=== PATIENT | male | born 1975 | race Two or more races ===

== ENCOUNTER 2020-04-30 10:40 | Emergency (ER) | payer MEDICAID ==
[~2020-04-30] VITALS: Ht 162.6 cm; Wt 68.0 kg
--- NOTE | 2020-04-30 10:40 | NUR ---
PT BIB SELF C/O CHEST PAIN NON RADIATING X 3 DAY AND ALCOHOL WITHDRAWAL. PT IS AAOX3, NOT IN RESPIRATORY DISTRESS, HOOKED TO PRES[employer] BENEFIT SPECIALIST, KEPT RESTED AND COMFORTABLE. WILL CONTINUE TO MONITOR.
--- NOTE | 2020-04-30 10:48 | NUR ---
SEEN AND EXAMINED BY .
[2020-04-30] MEDS ORDERED: CHLORDIAZEPOXIDE HCL 25 MG CAPSULE PO ONE (11:00)
--- NOTE | 2020-04-30 11:00 | NUR ---
ER PHLEB AT BEDSIDE FOR BLOOD DRAW.
[2020-04-30] MEDS ORDERED: CHLORDIAZEPOXIDE HCL 25 MG CAPSULE ONE (11:05)
[2020-04-30 11:06] LABS: BASOPHILS # (AUTO) 0.1 /CMM (0.0-0.2); BASOPHILS % (AUTO) 1.4 % (0.0-2.0); EOSINOPHILS % (AUTO) 3.4 % (0.0-6.0); HEMATOCRIT 38 % (39-51); LYMPHOCYTES # (AUTO) 1.7 /CMM (0.8-4.8); MEAN CORPUSCULAR HGB CONC 34 g/dl (31.0-36.0); MEAN CORPUSCULAR VOLUME 99 fL (80-96); MONOCYTES # (AUTO) 0.5 /CMM (0.1-1.30); MONOCYTES % (AUTO) 7.5 % (2.0-12.0); NEUTROPHILS # (AUTO) 4.2 /CMM (1.8-8.9); NEUTROPHILS % (AUTO) 62.7 % (43.0-81.0); PLATELET COUNT (AUTO) 172 /CMM (150-450); WHITE BLOOD COUNT (AUTO) 6.7 K/uL (4.3-11.0)
[2020-04-30 11:13] LABS: CALCIUM, SERUM 8.6 mg/dL (8.5-10.1); CARBON DIOXIDE 25 mmol/L (21-32); CHLORIDE 103 mmol/L (98-107); CREATININE 0.6 mg/dL (0.6-1.3); GLUCOSE 99 mg/dL (74-106); POTASSIUM 3.7 mmol/L (3.5-5.1); SODIUM SERUM 140 mmol/L (136-145); UREA NITROGEN, BLOOD 6 mg/dL (7-18)
[2020-04-30 12:15] VITALS: BP 118/70
--- NOTE | 2020-04-30 12:15 | NUR ---
Patient discharged to home in stable condition. Written and verbal after care instructions given. Patient verbalizes understanding of instruction.IV removed. Catheter intact and site benign. Pressure and 4x4 applied to site. No bleeding noted.
== END 2020-04-30 12:21 | disposition home or self-care (01) ==
LOC: ER 10:45
DX: R07.89 Other chest pain (principal); F10.239 Alcohol dependence with withdrawal, unspecified; Y90.9 Presence of alcohol in blood, level not specified
CPT/HCPCS: 36415; 71045-TC; 80048-TC; 84484-TC; 85025-TC

== ENCOUNTER 2020-07-07 16:41 | Emergency (ER) | payer MEDICAID ==
[~2020-07-07] VITALS: Ht 165.1 cm; Wt 72.6 kg
[2020-07-07 17:39] LABS: BASOPHILS % (AUTO) 0.6 % (0.0-2.0); HEMATOCRIT 37 % (39-51); HEMOGLOBIN 12.6 g/dL (13.5-17.5); LYMPHOCYTES # (AUTO) 0.2 /CMM (0.8-4.8); LYMPHOCYTES % (AUTO) 2.1 % (20.0-44.0); MEAN CORPUSCULAR HGB CONC 34 g/dl (31.0-36.0); MEAN CORPUSCULAR VOLUME 99 fL (80-96); MONOCYTES # (AUTO) 0.4 /CMM (0.1-1.30); MONOCYTES % (AUTO) 4.3 % (2.0-12.0); NEUTROPHILS # (AUTO) 7.8 /CMM (1.8-8.9); PLATELET COUNT (AUTO) 111 /CMM (150-450); RED BLOOD CELL COUNT(AUTO) 3.77 MIL/uL (4.5-6.0); WHITE BLOOD COUNT (AUTO) 8.4 K/uL (4.3-11.0)
[2020-07-07 17:48] LABS: CALCIUM, SERUM 9.6 mg/dL (8.5-10.1); CREATININE 0.7 mg/dL (0.6-1.3); POTASSIUM 3.6 mmol/L (3.5-5.1)
[2020-07-07 17:54] LABS: BILIRUBIN,DIRECT 0.2 mg/dL (0.0-0.2); BILIRUBIN,TOTAL 0.4 mg/dL (0.2-1.0); TOTAL PROTEIN, SERUM 8.7 g/dL (6.4-8.2)
[2020-07-07] MEDS ORDERED: TDAP [DIPH/PERTUSSIS/TET] 0.5 ML VIAL IM ONE (17:54)
[2020-07-07] MEDS ORDERED: LORAZEPAM INJ 2 MG/ML VIAL ONE ×2 (17:54→19:14)
[2020-07-07] MEDS ORDERED: ONDANSETRON HCL/PF 4 MG/2 ML VIAL ONE (17:54)
[2020-07-07] MEDS: IV NS 0.9% 1,000 ML BAG IV ONE (18:00)
[2020-07-07] MEDS: LORAZEPAM INJ 2 MG/ML VIAL IVP ONE (18:00)
[2020-07-07] MEDS: TDAP [DIPH/PERTUSSIS/TET] 0.5 ML VIAL IM ONE (18:00)
[2020-07-07] MEDS: ONDANSETRON HCL/PF 4 MG/2 ML VIAL IV ONE (18:00)
[2020-07-07 18:09] LABS: ALCOHOL, BLOOD < 3 mg/dL (0-0); LIPASE 141 U/L (73-393); MAGNESIUM 1.6 mg/dL (1.8-2.4)
[2020-07-07] MEDS: LEVETIRACETAM (500MG) 500 MG in IV NS 0.9% 100 ML IV SCH (18:30)
[2020-07-07] MEDS: LORAZEPAM INJ 2 MG/ML VIAL IV ONE (19:18)
--- NOTE | 2020-07-07 19:43 | NUR ---
PATIENT IS AMBULATORY WITH A STEADY GAIT. ABLE TO PUT ON HIS OWN CLOTHES.
--- NOTE | 2020-07-07 19:47 | NUR ---
PATIENT CALLED HIS BROTHER TO PICK HIM UP.
--- NOTE | 2020-07-07 19:50 | NUR ---
IV removed. Catheter intact and site benign. Pressure and 4x4 applied to site. No bleeding noted.
--- NOTE | 2020-07-07 19:50 | NUR ---
Patient discharged to home in stable condition. Written and verbal after care instructions given. Patient verbalizes understanding of instruction.
--- NOTE | 2020-07-07 19:53 | NUR ---
PATIENT IS PICKED UP BY THE BROTHER.
[2020-07-07 19:54] VITALS: BP 127/67
== END 2020-07-07 19:55 | disposition home or self-care (01) ==
LOC: ER 16:50
DX: S02.2XXA Fracture of nasal bones, initial encounter for closed fracture (principal); G40.909 Epilepsy, unspecified, not intractable, without status epilepticus; F10.239 Alcohol dependence with withdrawal, unspecified; R74.01 Elevation of levels of liver transaminase levels; D69.6 Thrombocytopenia, unspecified; R11.2 Nausea with vomiting, unspecified; R00.0 Tachycardia, unspecified; I10 Essential (primary) hypertension; Y90.0 Blood alcohol level of less than 20 mg/100 ml; X58.XXXA Exposure to other specified factors, initial encounter; Y93.89 Activity, other specified; Y92.89 Other specified places as the place of occurrence of the external cause; Y99.8 Other external cause status
CPT/HCPCS: 36415; 70450; 70486; 80048; 80076; 80320; 83690; 83735; 85025; 90471; 90715; 96365; 96375; 96376; 99285; J1953; J2060 ×2; J2405; J7030 ×2; G0480

== ENCOUNTER 2020-10-18 15:14 | Emergency (ER) | payer MEDICAID ==
--- NOTE | 2020-10-18 15:51 | NUR ---
called for tirage not in the waiting room
--- NOTE | 2020-10-18 15:56 | NUR ---
called for triage not in the waiting room
--- NOTE | 2020-10-18 16:09 | NUR ---
called for triage not in the waiting room
== END 2020-10-18 16:11 | disposition left against medical advice (07) ==
LOC: ER 15:17
DX: Z53.21 Procedure and treatment not carried out due to patient leaving prior to being seen by health care provider (principal)

== ENCOUNTER 2020-12-14 10:58 | Emergency (ER) | payer MEDICAID ==
[~2020-12-14] VITALS: Ht 165.1 cm; Wt 63.5 kg
--- NOTE | 2020-12-14 11:10 | NUR ---
The patient c/o weakness, bib bystander, laying in the streets, pt states he fainted. The patient noted to have hand tremors, patient stattes his last drink was a week ago. The patient denies having any injury. The patient is alert and oriented x3. Denies pain. In room air and denies SOB. Respiration regular and unlabored. Will continue to monitor the patient.
[2020-12-14] MEDS ORDERED: CHLORDIAZEPOXIDE HCL 25 MG CAPSULE PO ONE (11:30)
[2020-12-14] MEDS ORDERED: ONDANSETRON 4 MG TAB.RAPDIS SL ONE (11:30)
[2020-12-14] MEDS ORDERED: ONDANSETRON 4 MG TAB.RAPDIS ONE (11:35)
[2020-12-14] MEDS ORDERED: CHLORDIAZEPOXIDE HCL 25 MG CAPSULE ONE (11:35)
--- NOTE | 2020-12-14 13:13 | NUR ---
PTS AMBULATION TESTED. PT IS UNSTEADY ON HIS GAIT AND RISK FOR FALL. TREMORS STILL PRESENT BUT PT VERBALIZES THAT IT IS BETTER THAN EARLIER. MD MADE AWARE. PT IS BACK TO BED ORDERS RECEIVED
[2020-12-14] MEDS ORDERED: LORAZEPAM 1 MG TABLET ONE (13:18)
[2020-12-14] MEDS ORDERED: LORAZEPAM 1 MG TABLET PO ONE (13:30)
--- NOTE | 2020-12-14 14:22 | NUR ---
PT IS AMBULATING BETTER AND TREMORS ARE BETTER.
--- NOTE | 2020-12-14 14:22 | NUR ---
PT IS BEING PICKED UP BY HER SISTER, TRICIA. PT IS AMBULATORY ON STEADY GAIT W/ ASSIST
[2020-12-14 14:24] VITALS: BP 137/91
== END 2020-12-14 14:24 | disposition home or self-care (01) ==
LOC: ER 11:00
DX: F10.139 Alcohol abuse with withdrawal, unspecified (principal); I10 Essential (primary) hypertension; G25.2 Other specified forms of tremor; Y90.9 Presence of alcohol in blood, level not specified
CPT/HCPCS: 99284; Q0162

== ENCOUNTER 2021-01-09 15:56 | Emergency (ER) | payer MEDICAID ==
[~2021-01-09] VITALS: Ht 162.6 cm; Wt 72.6 kg
--- NOTE | 2021-01-09 16:02 | NUR ---
called for triage not in the waiting room
[2021-01-09] MEDS ORDERED: MUPI22OI2 TP (16:56)
[2021-01-09] MEDS ORDERED: CEPH500C2 PO (16:56)
[2021-01-09] MEDS ORDERED: SULF-10 PO (16:56)
[2021-01-09] MEDS ORDERED: BACITRACIN ZINC OINT PACKET 1 EA PACKET TP ONE (17:00)
[2021-01-09 17:14] VITALS: BP 146/84
--- NOTE | 2021-01-09 17:14 | NUR ---
Patient discharged to home in stable condition. Written and verbal after care instructions given. Patient verbalizes understanding of instruction.
== END 2021-01-09 17:14 | disposition home or self-care (01) ==
LOC: ER 16:00
DX: L08.9 Local infection of the skin and subcutaneous tissue, unspecified (principal); F10.10 Alcohol abuse, uncomplicated; B35.1 Tinea unguium; I10 Essential (primary) hypertension; Y90.9 Presence of alcohol in blood, level not specified
CPT/HCPCS: 82962-TC

== ENCOUNTER 2021-01-19 15:28 | Emergency (ER) | payer MEDICAID ==
[~2021-01-19] VITALS: Ht 157.5 cm; Wt 65.8 kg
[~2021-01-19 15:28] MED LIST: CEPH500C2 PO; MUPI22OI2 TP; SULF-10 PO
[2021-01-19 15:31] VITALS: BP 134/89
[2021-01-19] MEDS ORDERED: CLIN300C12 PO (16:55)
[2021-01-19] MEDS ORDERED: CLINDAMYCIN 900 MG/6 ML VIAL IM ONE (17:00)
[2021-01-19] MEDS ORDERED: CLINDAMYCIN 900 MG/6 ML VIAL ONE (17:01)
--- NOTE | 2021-01-19 17:18 | NUR ---
Patient discharged to home in stable condition. Written and verbal after care instructions given. Patient verbalizes understanding of instruction.
== END 2021-01-19 17:22 | disposition home or self-care (01) ==
LOC: ER 15:32
DX: L08.9 Local infection of the skin and subcutaneous tissue, unspecified (principal); B35.1 Tinea unguium; I10 Essential (primary) hypertension
CPT/HCPCS: 73140; 96372; 99283; J3490

== ENCOUNTER 2023-10-14 10:20 | Emergency (ER) | payer MEDICAID, OTHER ==
[~2023-10-14] VITALS: Ht 167.6 cm; Wt 82.1 kg
[~2023-10-14 10:20] MED LIST changes: +CLIN300C12 PO; +IBUP-1957 PO
[2023-10-14 11:31] LABS: BASOPHILS # (AUTO) 0.1 K/uL (0.0-0.2); BASOPHILS % (AUTO) 3.9 % (0.0-2.0); EOSINOPHILS # (AUTO) 0.1 K/uL (0.0-0.7); EOSINOPHILS % (AUTO) 3.6 % (0.0-6.0); HEMATOCRIT 34 % (39-51); HEMOGLOBIN 10.8 g/dL (13.5-17.5); LYMPHOCYTES # (AUTO) 1.2 K/uL (0.8-4.8); LYMPHOCYTES % (AUTO) 41.7 % (20.0-44.0); MEAN CORPUSCULAR HEMOGLOBIN 28 PG (26.0-33.0); MEAN CORPUSCULAR HGB CONC 32 g/dl (31.0-36.0); MEAN CORPUSCULAR VOLUME 86 fL (80-96); MONOCYTES # (AUTO) 0.3 K/uL (0.1-1.30); MONOCYTES % (AUTO) 9.8 % (2.0-12.0); NEUTROPHILS # (AUTO) 1.1 K/uL (1.8-8.9); PLATELET COUNT (AUTO) 105 K/uL (150-450); RED BLOOD CELL COUNT(AUTO) 3.92 MIL/uL (4.5-6.0); RED CELL DISTRIBUTION WIDTH 16.5 % (11.5-15.0); WHITE BLOOD COUNT (AUTO) 2.8 K/uL (4.3-11.0)
[2023-10-14 11:50] LABS: APPEARANCE,URINE CLEAR (CLEAR); BILIRUBIN,URINE NEGATIVE (NEGATIVE); BLOOD, URINE NEGATIVE Ery/uL (NEGATIVE); COLOR,URINE YELLOW (YELLOW); KETONES,URINE NEGATIVE (NEGATIVE); LEUKOCYTE ESTERASE ,URINE NEGATIVE (NEGATIVE); NITRITE, URINE NEGATIVE (NEGATIVE); PH,URINE 5.5 (5.0-8.0); PROTEIN,URINE NEGATIVE (NEGATIVE); UGLUCOSE 1+ mg/dL (NEGATIVE); UROBILINOGEN,URINE 0.2 EU/dL (0.2)
[2023-10-14 11:53] LABS: ADD URINE CULTURE NO; BACTERIA,URINE None seen /HPF (None Seen); RBC,URINE 0-2 /HPF (0-2); SQUAMOUS EPITHELIAL CELL,UR Rare /HPF (None Seen); WBC,URINE 0-2 /HPF (0-3)
[2023-10-14 12:28] LABS: AMPHETAMINE, URINE NEGATIVE (NEGATIVE); BARBITURATE, URINE NEGATIVE (NEGATIVE); BENZODIAZEPINE, URINE NEGATIVE (NEGATIVE); CANNABINOID, URINE NEGATIVE (NEGATIVE); COCCAINE, URINE NEGATIVE (NEGATIVE); OPIATE, URINE NEGATIVE (NEGATIVE); PHENCYCLIDINE SCREEN,URINE NEGATIVE (NEGATIVE)
[2023-10-14 12:33] LABS: ALANINE AMINOTRANSFERASE 84 U/L (12-78); ALKALINE PHOSPHATASE 71 U/L (46-116); ASPARTATE AMINOTRANSFERASE 120 U/L (15-37); BILIRUBIN,DIRECT 0.1 mg/dL (0.0-0.2); BILIRUBIN,TOTAL 0.2 mg/dL (0.2-1.0)
[2023-10-14 12:34] LABS: SODIUM SERUM 134 mmol/L (136-145)
[2023-10-14 12:35] LABS: ACETAMINOPHEN <10 ug/ml (10-30); ALCOHOL, BLOOD < 3 mg/dL (0-10); CALCIUM, SERUM 8.8 mg/dL (8.5-10.1); CARBON DIOXIDE 22 mmol/L (21-32); CHLORIDE 100 mmol/L (98-107); CREATININE 0.6 mg/dL (0.6-1.3); GLUCOSE 199 mg/dL (74-106); POTASSIUM 3.8 mmol/L (3.5-5.1); SALICYLATE 1.4 mg/dL (2.8-20.0); UREA NITROGEN, BLOOD 4 mg/dL (7-18)
[2023-10-14] MEDS ORDERED: ACETAMINOPHEN ES 500 MG TABLET ONE (12:51)
[2023-10-14] MEDS: ACETAMINOPHEN ES 500 MG TABLET PO ONE (12:52)
[2023-10-14 12:53] VITALS: BP 135/66; TEMP 98.7; O2SAT 100
== END 2023-10-14 12:53 | disposition home or self-care (01) ==
LOC: ER 10:30
DX: G89.29 Other chronic pain (principal); I10 Essential (primary) hypertension
CPT/HCPCS: 36415; 80048-TC; 80076-TC; 81001; 85025-TC; G0480

== ENCOUNTER 2023-11-03 15:27 | Emergency (ER) | payer OTHER ==
[~2023-11-03] VITALS: Ht 165.1 cm; Wt 72.6 kg
[2023-11-03 15:46] VITALS: TEMP 98.4
[2023-11-03 23:31] VITALS: BP 114/68; O2SAT 98
== END 2023-11-03 21:32 | disposition home or self-care (01) ==
LOC: ER 15:37
DX: S00.93XA Contusion of unspecified part of head, initial encounter (principal); F10.10 Alcohol abuse, uncomplicated; I10 Essential (primary) hypertension; Z60.2 Problems related to living alone; Z79.899 Other long term (current) drug therapy; W18.30XA Fall on same level, unspecified, initial encounter; Y93.89 Activity, other specified; Y92.89 Other specified places as the place of occurrence of the external cause; Y99.8 Other external cause status; Y90.9 Presence of alcohol in blood, level not specified
CPT/HCPCS: 70450-TC; 72125-TC

== ENCOUNTER 2023-12-23 13:42 | Emergency (ER) | payer OTHER ==
[~2023-12-23] VITALS: Ht 175.3 cm; Wt 68.0 kg
[2023-12-23 16:45] VITALS: TEMP 98.5
[2023-12-23] MEDS ORDERED: KETOROLAC TROMETHAMINE INJ 30 MG/ML VIAL ONE (17:13)
[2023-12-23] MEDS: KETOROLAC TROMETHAMINE INJ 60 MG/2 ML VIAL IM ONE (17:51)
[2023-12-23 21:01] VITALS: BP 128/78; O2SAT 98
== END 2023-12-23 21:01 | disposition home or self-care (01) ==
LOC: ER 13:44
DX: G89.29 Other chronic pain (principal); F10.10 Alcohol abuse, uncomplicated; I10 Essential (primary) hypertension; Z79.899 Other long term (current) drug therapy; Z60.2 Problems related to living alone; Y90.9 Presence of alcohol in blood, level not specified
CPT/HCPCS: 99283; 96372; 73564 ×2; J1885

== ENCOUNTER 2024-01-16 20:11 | Emergency (ER) | payer OTHER ==
[~2024-01-16] VITALS: Ht 170.2 cm; Wt 81.6 kg
[2024-01-17 05:42] VITALS: BP 133/79; TEMP 98.4; O2SAT 96
== END 2024-01-17 05:42 | disposition home or self-care (01) ==
LOC: ER 20:16
DX: F10.129 Alcohol abuse with intoxication, unspecified (principal); I10 Essential (primary) hypertension; M79.605 Pain in left leg; M79.604 Pain in right leg; Z60.2 Problems related to living alone; Y90.9 Presence of alcohol in blood, level not specified

== ENCOUNTER 2024-04-14 09:00 | Emergency (ER) | payer OTHER ==
[~2024-04-14] VITALS: Ht 172.7 cm; Wt 74.8 kg
[2024-04-14] MEDS ORDERED: FOLIC ACID 1 MG TABLET ONE (09:18)
[2024-04-14] MEDS ORDERED: THIAMINE HCL 100 MG TABLET ONE (09:18)
[2024-04-14] MEDS: FOLIC ACID 1 MG TABLET PO ONE (09:20)
[2024-04-14] MEDS: IV NS 0.9% 1,000 ML BAG IV ONE (09:20)
[2024-04-14] MEDS: THIAMINE HCL 100 MG TABLET PO ONE (09:20)
[2024-04-14 09:26] LABS: BASOPHILS # (AUTO) 0.1 K/uL (0.0-0.2); BASOPHILS % (AUTO) 1.5 % (0.0-2.0); EOSINOPHILS % (AUTO) 0.1 % (0.0-6.0); HEMATOCRIT 36 % (39-51); HEMOGLOBIN 11.7 g/dL (13.5-17.5); LYMPHOCYTES # (AUTO) 0.3 K/uL (0.8-4.8); LYMPHOCYTES % (AUTO) 6.3 % (20.0-44.0); MEAN CORPUSCULAR HEMOGLOBIN 30 PG (26.0-33.0); MEAN CORPUSCULAR HGB CONC 33 g/dl (31.0-36.0); MEAN CORPUSCULAR VOLUME 91 fL (80-96); MONOCYTES # (AUTO) 0.6 K/uL (0.1-1.30); MONOCYTES % (AUTO) 11.5 % (2.0-12.0); NEUTROPHILS # (AUTO) 3.9 K/uL (1.8-8.9); NEUTROPHILS % (AUTO) 80.6 % (43.0-81.0); PLATELET COUNT (AUTO) 103 K/uL (150-450); RED BLOOD CELL COUNT(AUTO) 3.92 MIL/uL (4.5-6.0); WHITE BLOOD COUNT (AUTO) 4.9 K/uL (4.3-11.0)
[2024-04-14 09:33] LABS: CALCIUM, SERUM 9.6 mg/dL (8.5-10.1); CREATININE 0.9 mg/dL (0.6-1.3); POTASSIUM 3.3 mmol/L (3.5-5.1)
[2024-04-14 13:30] VITALS: BP 122/80; TEMP 98.9; O2SAT 100
== END 2024-04-14 13:30 | disposition home or self-care (01) ==
LOC: ER 09:04
DX: S00.03XA Contusion of scalp, initial encounter (principal); F10.129 Alcohol abuse with intoxication, unspecified; I10 Essential (primary) hypertension; Z59.00 Homelessness unspecified; W01.198A Fall on same level from slipping, tripping and stumbling with subsequent striking against other object, initial encounter; Y93.89 Activity, other specified; Y92.89 Other specified places as the place of occurrence of the external cause; Y99.8 Other external cause status; Y90.9 Presence of alcohol in blood, level not specified
CPT/HCPCS: 99284; 96360; 70450; 85025; 80048; 36415; 98960; J7030

== ENCOUNTER 2024-04-16 13:43 | Inpatient (IN) | payer OTHER ==
[~2024-04-16] VITALS: Ht 167.6 cm; Wt 55.8 kg
[2024-04-16 14:31] LABS: BASOPHILS % (AUTO) 0.4 % (0.0-2.0); HEMATOCRIT 38 % (39-51); HEMOGLOBIN 11.4 g/dL (13.5-17.5); LYMPHOCYTES # (AUTO) 0.3 K/uL (0.8-4.8); LYMPHOCYTES % (AUTO) 3.2 % (20.0-44.0); MEAN CORPUSCULAR HEMOGLOBIN 30 PG (26.0-33.0); MEAN CORPUSCULAR HGB CONC 30 g/dl (31.0-36.0); MEAN CORPUSCULAR VOLUME 99 fL (80-96); MONOCYTES # (AUTO) 0.9 K/uL (0.1-1.30); MONOCYTES % (AUTO) 9.6 % (2.0-12.0); NEUTROPHILS # (AUTO) 8.4 K/uL (1.8-8.9); NEUTROPHILS % (AUTO) 86.8 % (43.0-81.0); PLATELET COUNT (AUTO) 107 K/uL (150-450); RED BLOOD CELL COUNT(AUTO) 3.82 MIL/uL (4.5-6.0); RED CELL DISTRIBUTION WIDTH 16.5 % (11.5-15.0); WHITE BLOOD COUNT (AUTO) 9.6 K/uL (4.3-11.0)
[2024-04-16 14:59] LABS: CALCIUM, SERUM 8.9 mg/dL (8.5-10.1); CHLORIDE 97 mmol/L (98-107); CREATININE 0.8 mg/dL (0.6-1.3); GLUCOSE 72 mg/dL (74-106); POTASSIUM 3.2 mmol/L (3.5-5.1); SODIUM SERUM 137 mmol/L (136-145); UREA NITROGEN, BLOOD 18 mg/dL (7-18)
[2024-04-16 15:02] LABS: CARBON DIOXIDE 5 mmol/L (21-32)
[2024-04-16 15:05] LABS: ALANINE AMINOTRANSFERASE 102 U/L (12-78); ALBUMIN 4.4 g/dL (3.4-5.0); ALCOHOL, BLOOD < 3 mg/dL (0-10); ALKALINE PHOSPHATASE 90 U/L (46-116); ASPARTATE AMINOTRANSFERASE 175 U/L (15-37); BILIRUBIN,DIRECT 0.7 mg/dL (0.0-0.2); BILIRUBIN,TOTAL 1.2 mg/dL (0.2-1.0); SALICYLATE 6.1 mg/dL (2.8-20.0); TOTAL PROTEIN, SERUM 8.3 g/dL (6.4-8.2)
[2024-04-16 15:09] LABS: ACETAMINOPHEN <10 ug/ml (10-30)
[2024-04-16] MEDS: IV NS 0.9% 1,000 ML BAG IV ONE (15:40)
[2024-04-16] MEDS: CEFTRIAXONE 1GM BAG (ER ONLY) 50 ML IV ONE (15:45)
[2024-04-16 15:52] LABS: ABG BASE EXCESS -27.2 mmol/L (-2.0-3.0); ABG OXYGEN SATURATION 83.8 % (94.0-98.0); ABG PCO2 15.3 mmHg (35.0-48.0); ABG PO2 62.7 mmHg (83.0-108.0); ABG TOTAL HEMOGLOBIN 12.3 G/dL (13.5-17.5); COHb 0.3 % (0.5-1.5); MetHb 0.4 % (0.0-1.5); O2Hb 83.2 % (94.0-97.0); SITE, ABG RIGHT RADIAL
[2024-04-16] MEDS: DEXTROSE 50%-WATER 50 ML DISP.SYRIN IV ONE (16:12)
[2024-04-16] MEDS: SODIUM BICARBONATE SYR 50 MEQ/50 ML DISP.SYRIN IV ONE (16:18)
[2024-04-16 16:25] LABS: APPEARANCE,URINE SLIGHTLY CLOUDY (CLEAR); BILIRUBIN,URINE 1+ (NEGATIVE); BLOOD, URINE 3+ Ery/uL (NEGATIVE); COLOR,URINE YELLOW (YELLOW); KETONES,URINE 3+ mg/dL (NEGATIVE); LEUKOCYTE ESTERASE ,URINE TRACE (NEGATIVE); NITRITE, URINE NEGATIVE (NEGATIVE); PROTEIN,URINE 2+ mg/dl (NEGATIVE); UGLUCOSE NEGATIVE (NEGATIVE)
[2024-04-16 16:50] LABS: ADD URINE CULTURE NO; BACTERIA,URINE RARE /HPF (None Seen); RBC,URINE 51-80 /HPF (0-2)
[2024-04-16 16:51] LABS: HYALINE CASTS, URINE Few /LPF (None Seen); MUCUS,URINE Few /LPF (None Seen)
[2024-04-16 16:57] LABS: ANISOCYTOSIS 1+; BAND % (MANUAL) 2 % (0.0-5.0); LYMPHOCYTES % (MANUAL) 6 % (16-48); MONOCYTES % (MANUAL) 3 % (0-11.0); NEUTROPHILS % (MANUAL) 89 (42-76); PLATELET ESTIMATE DECREASED
[2024-04-16 17:04] LABS: AMPHETAMINE, URINE NEGATIVE (NEGATIVE); BARBITURATE, URINE NEGATIVE (NEGATIVE); BENZODIAZEPINE, URINE NEGATIVE (NEGATIVE); CANNABINOID, URINE NEGATIVE (NEGATIVE); COCCAINE, URINE NEGATIVE (NEGATIVE); OPIATE, URINE NEGATIVE (NEGATIVE); PHENCYCLIDINE SCREEN,URINE NEGATIVE (NEGATIVE)
[2024-04-16 17:15] LABS: THYROID STIMULATING HORMONE 1.37 uIU/mL (0.358-3.74)
[2024-04-16] MEDS ORDERED: ONDANSETRON HCL/PF 4 MG/2 ML VIAL IVP PRN (17:30)
[2024-04-16] MEDS ORDERED: MAGNESIUM HYDROXIDE 30 ML UDC PO PRN (17:30)
[2024-04-16] MEDS ORDERED: MAG HYDROX/AL HYDROX/SIMETH 30 ML UDC PO PRN (17:30)
[2024-04-16] MEDS ORDERED: Z GUARD REMEDY 4 OZ OINT TP PRN (17:30)
[2024-04-16 21:00] VITALS: BP 112/78; TEMP 97.8; O2SAT 100
[2024-04-16 21:30] VITALS: BP 120/73; O2SAT 100
[2024-04-16] MEDS: IV NS 0.9% 1,000 ML IV SCH (21:32)
[2024-04-16 22:00] VITALS: BP 118/69; O2SAT 100
[2024-04-16] MEDS ORDERED: CEFEPIME 1 GM VIAL ONE (22:05)
[2024-04-16] MEDS: CEFEPIME 2 GM in IV D5W 100 ML IV SCH (22:19)
[2024-04-16 22:30] VITALS: BP 113/74; O2SAT 100
[2024-04-16 23:00] VITALS: BP 122/68; O2SAT 100
[2024-04-16 23:30] VITALS: BP 119/74; O2SAT 100
[2024-04-17] VITALS (45 sets, daily range): BP systolic 102–144; BP diastolic 37–126; TEMP 97.5–98.6; O2SAT 98–100
[2024-04-17 04:51] LABS: BASOPHILS % (AUTO) 0.1 % (0.0-2.0); EOSINOPHILS % (AUTO) 0.2 % (0.0-6.0); HEMATOCRIT 34 % (39-51); HEMOGLOBIN 10.5 g/dL (13.5-17.5); LYMPHOCYTES # (AUTO) 0.4 K/uL (0.8-4.8); LYMPHOCYTES % (AUTO) 3.9 % (20.0-44.0); MEAN CORPUSCULAR HEMOGLOBIN 30 PG (26.0-33.0); MEAN CORPUSCULAR HGB CONC 31 g/dl (31.0-36.0); MEAN CORPUSCULAR VOLUME 98 fL (80-96); MONOCYTES # (AUTO) 1.6 K/uL (0.1-1.30); MONOCYTES % (AUTO) 14.3 % (2.0-12.0); NEUTROPHILS # (AUTO) 8.9 K/uL (1.8-8.9); NEUTROPHILS % (AUTO) 81.5 % (43.0-81.0); PLATELET COUNT (AUTO) 109 K/uL (150-450); RED BLOOD CELL COUNT(AUTO) 3.48 MIL/uL (4.5-6.0); RED CELL DISTRIBUTION WIDTH 16.4 % (11.5-15.0); WHITE BLOOD COUNT (AUTO) 10.9 K/uL (4.3-11.0)
[2024-04-17 05:00] LABS: CALCIUM, SERUM 7.8 mg/dL (8.5-10.1); MAGNESIUM 2.1 mg/dL (1.8-2.4); POTASSIUM 2.9 mmol/L (3.5-5.1)
[2024-04-17] MEDS: POTASSIUM CL. PREMIX PERIPHER. 50 ML IV SCH ×4 (05:40→22:41)
[2024-04-17] MEDS: Sodium Bicarbonate 50 MEQ in IV D5/0.45 NACL 1,000 ML IV SCH (07:54)
[2024-04-17] MEDS ORDERED: Sodium Bicarbonate 150 MEQ in IV D5/0.45 NACL 1,000 ML IV PRN (08:30)
[2024-04-17 08:31] LABS: ABG BASE EXCESS -24.2 mmol/L (-2.0-3.0); ABG OXYGEN SATURATION 98.3 % (94.0-98.0); ABG PCO2 12.2 mmHg (35.0-48.0); ABG PH 7.084 (7.350-7.450); ABG PO2 141.1 mmHg (83.0-108.0); ABG TOTAL HEMOGLOBIN 11.5 G/dL (13.5-17.5); COHb 0.1 % (0.5-1.5); MetHb 0.2 % (0.0-1.5); SITE, ABG LEFT RADIAL
[2024-04-17] MEDS: SODIUM BICARBONATE SYR 50 MEQ/50 ML DISP.SYRIN IV ONE (09:33)
[2024-04-17] MEDS: Sodium Bicarbonate 150 MEQ in IV D5/0.45 NACL 1,000 ML IV ONE (11:39)
[2024-04-17 13:17] LABS: CALCIUM, SERUM 8.4 mg/dL (8.5-10.1); CREATININE 0.9 mg/dL (0.6-1.3); POTASSIUM 3.2 mmol/L (3.5-5.1)
[2024-04-17 14:53] LABS: ABG BASE EXCESS -15.6 mmol/L (-2.0-3.0); ABG OXYGEN SATURATION 98.3 % (94.0-98.0); ABG PCO2 14.5 mmHg (35.0-48.0); ABG PH 7.343 (7.350-7.450); ABG PO2 118.6 mmHg (83.0-108.0); ABG TOTAL HEMOGLOBIN 11.1 G/dL (13.5-17.5); COHb 0.4 % (0.5-1.5); MetHb 0.2 % (0.0-1.5); O2Hb 97.7 % (94.0-97.0); SITE, ABG RIGHT RADIAL
[2024-04-17] MEDS ORDERED: POTASSIUM CL. PREMIX PERIPHER. 50 ML IV SCH (15:00)
[2024-04-17] MEDS: SODIUM BICARBONATE IV SCH (15:57)
[2024-04-17] MEDS: D5W IV SCH (15:57)
[2024-04-17 16:46] LABS: CALCIUM, SERUM 8.4 mg/dL (8.5-10.1)
[2024-04-17 17:01] LABS: POTASSIUM 2.7 mmol/L (3.5-5.1)
[2024-04-17] MEDS: IV D5W 1,000 ML IV PRN ×2 (18:43→21:39)
[2024-04-17] MEDS ORDERED: Sodium Bicarbonate 150 MEQ in IV D5/0.45 NACL 1,000 ML IV SCH (21:00)
[2024-04-17 21:37] LABS: CALCIUM, SERUM 7.9 mg/dL (8.5-10.1); CREATININE 1.1 mg/dL (0.6-1.3)
[2024-04-17 21:40] LABS: POTASSIUM 2.6 mmol/L (3.5-5.1)
[2024-04-18] VITALS (24 sets, daily range): BP systolic 100–135; BP diastolic 65–79; TEMP 97.8–98.1; O2SAT 94–100
[2024-04-18 04:55] LABS: BASOPHILS % (AUTO) 0.3 % (0.0-2.0); EOSINOPHILS % (AUTO) 0.1 % (0.0-6.0); HEMATOCRIT 26 % (39-51); HEMOGLOBIN 8.8 g/dL (13.5-17.5); LYMPHOCYTES # (AUTO) 0.3 K/uL (0.8-4.8); LYMPHOCYTES % (AUTO) 4.8 % (20.0-44.0); MEAN CORPUSCULAR HEMOGLOBIN 31 PG (26.0-33.0); MEAN CORPUSCULAR HGB CONC 34 g/dl (31.0-36.0); MEAN CORPUSCULAR VOLUME 92 fL (80-96); MONOCYTES % (AUTO) 17.2 % (2.0-12.0); NEUTROPHILS # (AUTO) 4.6 K/uL (1.8-8.9); NEUTROPHILS % (AUTO) 77.6 % (43.0-81.0); PLATELET COUNT (AUTO) 82 K/uL (150-450); RED BLOOD CELL COUNT(AUTO) 2.84 MIL/uL (4.5-6.0); RED CELL DISTRIBUTION WIDTH 16.1 % (11.5-15.0)
[2024-04-18 05:11] LABS: CALCIUM, SERUM 7.6 mg/dL (8.5-10.1); CREATININE 0.8 mg/dL (0.6-1.3); MAGNESIUM 1.6 mg/dL (1.8-2.4)
[2024-04-18 05:15] LABS: BAND % (MANUAL) 2 % (0.0-5.0); BASOPHILS % (MANUAL) 0 % (0.0-2.0); EOSINOPHILS % (MANUAL) 0 % (0-4); LYMPHOCYTES % (MANUAL) 6 % (16-48); MONOCYTES % (MANUAL) 16 % (0-11.0); NEUTROPHILS % (MANUAL) 76 (42-76)
[2024-04-18 05:16] LABS: PLATELET ESTIMATE DECREASED; STOMATOCYTES FEW
[2024-04-18 05:21] LABS: PHOSPHORUS 0.8 mg/dL (2.5-4.9); POTASSIUM 2.5 mmol/L (3.5-5.1)
[2024-04-18] MEDS: POTASSIUM CL. PREMIX PERIPHER. 50 ML IV SCH (07:12)
[2024-04-18] MEDS: Magnesium 1GM/D5W 100ML PREMIX 100 ML IV SCH (07:20)
[2024-04-18] MEDS: POTASSIUM CHLORIDE 20 MEQ TAB.PRT.SR PO ONE ×2 (09:19→20:04)
[2024-04-18] MEDS ORDERED: MAGNESIUM OXIDE 400 MG TABLET PO ONE (10:00)
[2024-04-18] MEDS: POTASSIUM PHOSPHATE MM 7.5 MMOL in IV NS 0.9% 100 ML IV SCH (10:44)
[2024-04-18] MEDS: NEUTRA PHOS 1 POWD.PACKET PO ONE (10:47)
[2024-04-18] MEDS: IV NS 0.9% 1,000 ML IV PRN (18:12)
[2024-04-18] MEDS ORDERED: DEXTROSE 50%-WATER 50 ML DISP.SYRIN IV PRN (18:30)
[2024-04-18 20:18] LABS: CALCIUM, SERUM 8.3 mg/dL (8.5-10.1); CREATININE 0.7 mg/dL (0.6-1.3)
[2024-04-18 20:22] LABS: POTASSIUM 2.5 mmol/L (3.5-5.1)
[2024-04-18] MEDS: BLOOD SUGAR DIAGNOSTIC 1 EACH STRIP VI SCH (22:18)
[2024-04-18] MEDS: *INSULIN REGULAR(HUMULIN R)HUM 100 UNIT/ML VIAL SQ PRN (22:20)
[2024-04-18 23:25] LABS: CALCIUM, SERUM 8.1 mg/dL (8.5-10.1); CREATININE 0.6 mg/dL (0.6-1.3); POTASSIUM 3.2 mmol/L (3.5-5.1)
[2024-04-19] VITALS (17 sets, daily range): BP systolic 105–140; BP diastolic 65–88; TEMP 98–98.5; O2SAT 93–100
[2024-04-19 05:02] LABS: CALCIUM, SERUM 8.3 mg/dL (8.5-10.1); CREATININE 0.6 mg/dL (0.6-1.3); POTASSIUM 2.8 mmol/L (3.5-5.1)
[2024-04-19] MEDS: POTASSIUM CHLORIDE 20 MEQ TAB.PRT.SR PO ONE ×2 (06:46→07:54)
[2024-04-19] MEDS: INSULIN REGULAR, HUMAN 100 UNIT/ML 3 ML VIAL SQ PRN (07:47)
[2024-04-19 09:33] LABS: BASOPHILS % (AUTO) 0.8 % (0.0-2.0); EOSINOPHILS % (AUTO) 0.4 % (0.0-6.0); HEMATOCRIT 30 % (39-51); HEMOGLOBIN 9.9 g/dL (13.5-17.5); LYMPHOCYTES # (AUTO) 0.6 K/uL (0.8-4.8); LYMPHOCYTES % (AUTO) 13.2 % (20.0-44.0); MEAN CORPUSCULAR HEMOGLOBIN 30 PG (26.0-33.0); MEAN CORPUSCULAR HGB CONC 33 g/dl (31.0-36.0); MEAN CORPUSCULAR VOLUME 92 fL (80-96); MONOCYTES # (AUTO) 0.9 K/uL (0.1-1.30); MONOCYTES % (AUTO) 19.1 % (2.0-12.0); NEUTROPHILS # (AUTO) 3.2 K/uL (1.8-8.9); NEUTROPHILS % (AUTO) 66.5 % (43.0-81.0); PLATELET COUNT (AUTO) 69 K/uL (150-450); RED BLOOD CELL COUNT(AUTO) 3.27 MIL/uL (4.5-6.0); RED CELL DISTRIBUTION WIDTH 15.7 % (11.5-15.0); WHITE BLOOD COUNT (AUTO) 4.8 K/uL (4.3-11.0)
[2024-04-19 10:50] LABS: ANISOCYTOSIS 1+; PLATELET ESTIMATE DECREASED
[2024-04-19 13:13] LABS: CALCIUM, SERUM 8.8 mg/dL (8.5-10.1); CREATININE 0.5 mg/dL (0.6-1.3); POTASSIUM 3.4 mmol/L (3.5-5.1)
[2024-04-19] MEDS: ACETAMINOPHEN 325 MG TABLET PO PRN (22:33)
[2024-04-20] VITALS: BP 136/88; TEMP 98.9; O2SAT 100
[2024-04-20 08:00] VITALS: BP 128/87; TEMP 98.4; O2SAT 98
[2024-04-20 16:00] VITALS: BP 123/76; TEMP 98.8; O2SAT 99
[2024-04-21] VITALS: BP 123/76; TEMP 98.8; O2SAT 99
[2024-04-21 04:01] VITALS: BP 130/65; TEMP 98; O2SAT 100
[2024-04-21 08:00] VITALS: BP 136/75; TEMP 98; O2SAT 100
[2024-04-21] MEDS: OLANZAPINE 10 MG VIAL IM PRN (08:52)
[2024-04-21] MEDS: THIAMINE HCL 100 MG TABLET PO SCH (10:55)
[2024-04-21] MEDS ORDERED: CHLORDIAZEPOXIDE HCL 25 MG CAPSULE PO PRN (11:00)
[2024-04-21 16:00] VITALS: BP 102/79; TEMP 98.8; O2SAT 99
[2024-04-21] MEDS: OLANZAPINE ZYDIS 5 MG TAB.RAPDIS PO SCH (17:41)
[2024-04-21 20:00] VITALS: BP 125/89; TEMP 99.1; O2SAT 100
[2024-04-22 04:00] VITALS: BP 124/90; TEMP 98.8; O2SAT 100
[2024-04-22 07:03] LABS: BASOPHILS # (AUTO) 0.1 K/uL (0.0-0.2); BASOPHILS % (AUTO) 0.6 % (0.0-2.0); EOSINOPHILS # (AUTO) 0.1 K/uL (0.0-0.7); HEMATOCRIT 33 % (39-51); HEMOGLOBIN 10.6 g/dL (13.5-17.5); LYMPHOCYTES # (AUTO) 1.8 K/uL (0.8-4.8); MEAN CORPUSCULAR HEMOGLOBIN 30 PG (26.0-33.0); MEAN CORPUSCULAR HGB CONC 33 g/dl (31.0-36.0); MEAN CORPUSCULAR VOLUME 93 fL (80-96); MONOCYTES # (AUTO) 2.5 K/uL (0.1-1.30); MONOCYTES % (AUTO) 25.4 % (2.0-12.0); NEUTROPHILS # (AUTO) 5.4 K/uL (1.8-8.9); PLATELET COUNT (AUTO) 251 K/uL (150-450); RED BLOOD CELL COUNT(AUTO) 3.51 MIL/uL (4.5-6.0); WHITE BLOOD COUNT (AUTO) 9.8 K/uL (4.3-11.0)
[2024-04-22 07:33] LABS: CALCIUM, SERUM 9.8 mg/dL (8.5-10.1); CREATININE 0.5 mg/dL (0.6-1.3); MAGNESIUM 1.8 mg/dL (1.8-2.4); PHOSPHORUS 1.8 mg/dL (2.5-4.9); POTASSIUM 3.2 mmol/L (3.5-5.1)
[2024-04-22] MEDS: MULTIVIT W/MINERALS 1 TAB TABLET PO SCH (08:21)
[2024-04-22 08:55] LABS: BAND % (MANUAL) 1 % (0.0-5.0); EOSINOPHILS % (MANUAL) 1 % (0-4); LYMPHOCYTES % (MANUAL) 14 % (16-48); METAMYELOCYTES % 2 % (0-0); MONOCYTES % (MANUAL) 25 % (0-11.0); NEUTROPHILS % (MANUAL) 55 (42-76)
[2024-04-22 08:56] LABS: ANISOCYTOSIS 1+; MYELOCYTES % 1 % (0-0); PLATELET ESTIMATE ADEQUATE; PROMYELOCYTES % 1 % (0-0)
[2024-04-22] MEDS: POTASSIUM CHLORIDE 20 MEQ TAB.PRT.SR PO SCH (11:26)
[2024-04-22] MEDS: K PHOS NEUTRAL 250 MG TABLET PO ONE (15:59)
[2024-04-22 16:00] VITALS: BP 104/72; TEMP 98.6; O2SAT 100
[2024-04-22] MEDS: IV D5/0.45 NACL 1,000 ML IV PRN (16:54)
[2024-04-22] MEDS ORDERED: Sodium Phosphate 15 MMOL in IV NS 0.9% 245 ML IV SCH (18:30)
[2024-04-22] MEDS: POTASSIUM CL. PREMIX PERIPHER. 50 ML IV SCH (18:46)
[2024-04-22 20:00] VITALS: BP 127/84; TEMP 98.6; O2SAT 100
[2024-04-22] MEDS: Sodium Phosphate 15 MMOL in IV NS 0.9% 245 ML IV SCH (21:00)
[2024-04-23 04:00] VITALS: BP 130/85; TEMP 98.4; O2SAT 100
[2024-04-23 08:00] VITALS: BP 106/73; TEMP 98.1; O2SAT 100
[2024-04-23 12:00] VITALS: BP 106/73; TEMP 98.1; O2SAT 100
[2024-04-23 18:00] VITALS: BP 123/85; TEMP 99; O2SAT 99
[2024-04-23] MEDS ORDERED: CEFEPIME 1 GM in IV D5W 50 ML IV SCH (18:30)
[2024-04-23] MEDS: CEFEPIME 2 GM in IV D5W 100 ML IV SCH (19:48)
[2024-04-23 20:00] VITALS: BP 107/69; TEMP 98.5; O2SAT 97
[2024-04-24 04:00] VITALS: BP 120/70; TEMP 98.5; O2SAT 98
[2024-04-24] MEDS ORDERED: METF-442 PO (09:47)
[2024-04-24 12:00] VITALS: BP 117/80; TEMP 98.2; O2SAT 100
[2024-04-24 20:00] VITALS: BP 107/67; TEMP 98.3; O2SAT 100
[2024-04-25 04:00] VITALS: BP 108/69; TEMP 98.1; O2SAT 100
[2024-04-25 08:23] LABS: BASOPHILS # (AUTO) 0.1 K/uL (0.0-0.2); BASOPHILS % (AUTO) 1.1 % (0.0-2.0); EOSINOPHILS # (AUTO) 0.2 K/uL (0.0-0.7); HEMATOCRIT 31 % (39-51); HEMOGLOBIN 10.1 g/dL (13.5-17.5); LYMPHOCYTES % (AUTO) 18.7 % (20.0-44.0); MEAN CORPUSCULAR HEMOGLOBIN 31 PG (26.0-33.0); MEAN CORPUSCULAR HGB CONC 33 g/dl (31.0-36.0); MEAN CORPUSCULAR VOLUME 94 fL (80-96); MONOCYTES # (AUTO) 0.8 K/uL (0.1-1.30); MONOCYTES % (AUTO) 15.2 % (2.0-12.0); NEUTROPHILS # (AUTO) 3.4 K/uL (1.8-8.9); PLATELET COUNT (AUTO) 334 K/uL (150-450); RED CELL DISTRIBUTION WIDTH 17.5 % (11.5-15.0); WHITE BLOOD COUNT (AUTO) 5.5 K/uL (4.3-11.0)
[2024-04-25 08:36] LABS: ALBUMIN 2.7 g/dL (3.4-5.0); BILIRUBIN,TOTAL 0.5 mg/dL (0.2-1.0); CREATININE 0.5 mg/dL (0.6-1.3); MAGNESIUM 1.9 mg/dL (1.8-2.4); PHOSPHORUS 3.8 mg/dL (2.5-4.9); POTASSIUM 3.5 mmol/L (3.5-5.1); TOTAL PROTEIN, SERUM 6.6 g/dL (6.4-8.2)
[2024-04-25 11:14] LABS: EOSINOPHILS % (MANUAL) 3 % (0-4); LYMPHOCYTES % (MANUAL) 24 % (16-48); MONOCYTES % (MANUAL) 10 % (0-11.0); NEUTROPHILS % (MANUAL) 63 (42-76)
[2024-04-25 11:15] LABS: PLATELET ESTIMATE ADEQUATE
[2024-04-25 12:00] VITALS: BP 110/74; TEMP 98.6; O2SAT 100
[2024-04-25] MEDS ORDERED: IV NS 0.9% 250 ML IV PRN (12:30)
[2024-04-25 20:00] VITALS: BP 104/62; TEMP 98.3; O2SAT 100
[2024-04-26 04:00] VITALS: BP 115/74; TEMP 98.4; O2SAT 98
[2024-04-26 07:49] LABS: BASOPHILS # (AUTO) 0.1 K/uL (0.0-0.2); BASOPHILS % (AUTO) 1.3 % (0.0-2.0); EOSINOPHILS # (AUTO) 0.2 K/uL (0.0-0.7); EOSINOPHILS % (AUTO) 2.4 % (0.0-6.0); HEMATOCRIT 32 % (39-51); HEMOGLOBIN 10.6 g/dL (13.5-17.5); LYMPHOCYTES # (AUTO) 1.5 K/uL (0.8-4.8); LYMPHOCYTES % (AUTO) 23.1 % (20.0-44.0); MEAN CORPUSCULAR HEMOGLOBIN 31 PG (26.0-33.0); MEAN CORPUSCULAR HGB CONC 33 g/dl (31.0-36.0); MEAN CORPUSCULAR VOLUME 94 fL (80-96); MONOCYTES # (AUTO) 0.9 K/uL (0.1-1.30); MONOCYTES % (AUTO) 14.4 % (2.0-12.0); NEUTROPHILS # (AUTO) 3.8 K/uL (1.8-8.9); NEUTROPHILS % (AUTO) 58.8 % (43.0-81.0); PLATELET COUNT (AUTO) 384 K/uL (150-450); RED BLOOD CELL COUNT(AUTO) 3.44 MIL/uL (4.5-6.0); RED CELL DISTRIBUTION WIDTH 17.9 % (11.5-15.0); WHITE BLOOD COUNT (AUTO) 6.4 K/uL (4.3-11.0)
[2024-04-26 08:00] VITALS: BP 111/71; TEMP 98.4; O2SAT 100
[2024-04-26 08:08] LABS: BILIRUBIN,TOTAL 0.5 mg/dL (0.2-1.0); CALCIUM, SERUM 9.1 mg/dL (8.5-10.1); CREATININE 0.5 mg/dL (0.6-1.3); MAGNESIUM 1.9 mg/dL (1.8-2.4); PHOSPHORUS 3.4 mg/dL (2.5-4.9); POTASSIUM 3.7 mmol/L (3.5-5.1); TOTAL PROTEIN, SERUM 7.3 g/dL (6.4-8.2)
[2024-04-26 16:00] VITALS: BP 121/85; TEMP 98.8; O2SAT 98
[2024-04-26 20:37] VITALS: BP 125/90; TEMP 97.9; O2SAT 98
[2024-04-27 00:10] VITALS: BP 125/90; TEMP 97.9; O2SAT 98
[2024-04-27 08:00] VITALS: BP 135/94; TEMP 97.9; O2SAT 99
[2024-04-27] MEDS: NEOMY SULF/BACITRAC ZN/POLY 15 GM TUBE TP SCH (10:56)
[2024-04-27 16:00] VITALS: BP 121/81; TEMP 98.6; O2SAT 100
[2024-04-27 20:00] VITALS: BP 115/77; TEMP 98.6; O2SAT 100
[2024-04-28] VITALS: BP 115/77; TEMP 98.6; O2SAT 100
[2024-04-28 04:00] VITALS: BP 105/72; TEMP 98.1; O2SAT 99
[2024-04-28 05:13] LABS: HEPATITIS B SURFACE AB Non Reactive (.)
[2024-04-28 08:00] VITALS: BP 107/75; TEMP 98.6; O2SAT 99
[2024-04-28 16:00] VITALS: BP 107/75; TEMP 98.4; O2SAT 99
[2024-04-29 04:57] VITALS: BP 115/74; TEMP 98.7; O2SAT 100
[2024-04-29 08:00] VITALS: BP 124/82; TEMP 97.3; TEMP 97.5; O2SAT 98
[2024-04-29 10:00] VITALS: BP 124/82; TEMP 97.3; O2SAT 98
[2024-04-29 16:00] VITALS: BP 125/73; TEMP 97.5; O2SAT 98
[2024-04-29 18:00] VITALS: BP 125/73; TEMP 97.5; O2SAT 98
[2024-04-29 22:00] VITALS: BP 107/71; TEMP 99.1; O2SAT 98
[2024-04-30] MEDS ORDERED: Multivit W/Minerals PO (08:55)
[2024-04-30] MEDS ORDERED: OLAN5TAB6 PO (08:55)
== END 2024-04-30 17:45 | disposition home health service (06) | DRG 815 ==
LOC: ER 13:48 → TELE 17:09 → ICU 20:36 → MEDSG1 04-19 16:09
PROVIDERS: ADMIT Internal Medicine; ATTEND Internal Medicine
DX: T73.0XXA Starvation, initial encounter (principal); G93.41 Metabolic encephalopathy; E87.29 Other acidosis; E87.0 Hyperosmolality and hypernatremia; E86.0 Dehydration; Z59.00 Homelessness unspecified; F10.139 Alcohol abuse with withdrawal, unspecified; Y90.0 Blood alcohol level of less than 20 mg/100 ml; Z20.822 Contact with and (suspected) exposure to COVID-19; D53.9 Nutritional anemia, unspecified; E87.6 Hypokalemia; I10 Essential (primary) hypertension; X58.XXXA Exposure to other specified factors, initial encounter; F10.188 Alcohol abuse with other alcohol-induced disorder; F39 Unspecified mood [affective] disorder; F29 Unspecified psychosis not due to a substance or known physiological condition; K70.9 Alcoholic liver disease, unspecified; F19.959 Other psychoactive substance use, unspecified with psychoactive substance-induced psychotic disorder, unspecified; F10.129 Alcohol abuse with intoxication, unspecified
CPT/HCPCS: 36415; 36600; 70450-TC; 71045-TC; 80048-TC; 80053-TC; 80076-TC; 81001; 82140-TC; 82693; 82803-TC; 82962-TC; 83605-TC; 83735-TC; 83935-TC; 84100-TC; 84443-TC; 85025-TC; 86706; 86803; 87040-TC; 87081-TC; 87086-TC; 87340; 97110-TC; 97112-TC; 97116-TC; 97530-TC; 97535-TC; 98960; A4223; A9563; G0378; G0480; J0692; J0696; J1815; J3475; J3480; J3490; J7030; J7040; J7050; J7060; J7070

== ENCOUNTER 2024-06-16 16:17 | Emergency (ER) | payer OTHER ==
[~2024-06-16] VITALS: Ht 165.1 cm; Wt 72.6 kg
[~2024-06-16 16:17] MED LIST changes: -CEPH500C2 PO; -CLIN300C12 PO; -IBUP-1957 PO; -MUPI22OI2 TP; +Multivit W/Minerals PO; +OLAN5TAB6 PO; -SULF-10 PO
[2024-06-16 19:39] LABS: BASOPHILS # (AUTO) 0.1 K/uL (0.0-0.2); BASOPHILS % (AUTO) 1.3 % (0.0-2.0); EOSINOPHILS # (AUTO) 0.1 K/uL (0.0-0.7); EOSINOPHILS % (AUTO) 2.1 % (0.0-6.0); HEMATOCRIT 33 % (39-51); HEMOGLOBIN 10.5 g/dL (13.5-17.5); LYMPHOCYTES # (AUTO) 2.1 K/uL (0.8-4.8); LYMPHOCYTES % (AUTO) 48.8 % (20.0-44.0); MEAN CORPUSCULAR HEMOGLOBIN 29 PG (26.0-33.0); MEAN CORPUSCULAR HGB CONC 32 g/dl (31.0-36.0); MEAN CORPUSCULAR VOLUME 90 fL (80-96); MONOCYTES # (AUTO) 0.5 K/uL (0.1-1.30); MONOCYTES % (AUTO) 12.1 % (2.0-12.0); NEUTROPHILS # (AUTO) 1.5 K/uL (1.8-8.9); NEUTROPHILS % (AUTO) 35.7 % (43.0-81.0); PLATELET COUNT (AUTO) 173 K/uL (150-450); RED BLOOD CELL COUNT(AUTO) 3.63 MIL/uL (4.5-6.0); RED CELL DISTRIBUTION WIDTH 14.8 % (11.5-15.0); WHITE BLOOD COUNT (AUTO) 4.3 K/uL (4.3-11.0)
[2024-06-16] MEDS: BACITRACIN ZINC OINT PACKET 1 EA PACKET TP ONE (19:42)
[2024-06-16] MEDS: KETOROLAC TROMETHAMINE INJ 30 MG/ML VIAL IM ONE (19:42)
[2024-06-16 19:45] LABS: CALCIUM, SERUM 8.6 mg/dL (8.5-10.1); CREATININE 0.5 mg/dL (0.6-1.3); POTASSIUM 3.9 mmol/L (3.5-5.1)
[2024-06-16 19:52] LABS: ALBUMIN 3.7 g/dL (3.4-5.0); BILIRUBIN,TOTAL 0.1 mg/dL (0.2-1.0); TOTAL PROTEIN, SERUM 7.2 g/dL (6.4-8.2)
[2024-06-16] MEDS ORDERED: IBUP-1955 PO (20:41)
[2024-06-16] MEDS ORDERED: BACI500P4 TP (20:42)
[2024-06-16 21:01] VITALS: BP 111/78; TEMP 98.6; O2SAT 98
== END 2024-06-16 21:00 | disposition home or self-care (01) ==
LOC: ER 16:21
DX: S90.921D Unspecified superficial injury of right foot, subsequent encounter (principal); M25.561 Pain in right knee; F17.200 Nicotine dependence, unspecified, uncomplicated; G89.29 Other chronic pain; I10 Essential (primary) hypertension; Z59.00 Homelessness unspecified; Z99.3 Dependence on wheelchair; X58.XXXD Exposure to other specified factors, subsequent encounter
CPT/HCPCS: 99284; 96372; 73564; 85025; 36415; 80053; J1885

== ENCOUNTER 2025-02-07 17:51 | Emergency (ER) | payer OTHER ==
[~2025-02-07] VITALS: Ht 167.6 cm; Wt 68.0 kg
[~2025-02-07 17:51] MED LIST changes: +BACI500P4 TP; +IBUP-1955 PO
[2025-02-07 17:54] VITALS: TEMP 97.9
[2025-02-07] MEDS ORDERED: IBUPROFEN 600 MG TABLET ONE (18:10)
[2025-02-07] MEDS: IBUPROFEN 600 MG TABLET PO ONE (18:14)
[2025-02-07 18:27] VITALS: BP 120/70; O2SAT 97
== END 2025-02-07 18:25 | disposition home or self-care (01) ==
LOC: ER 18:03
DX: M25.561 Pain in right knee (principal); I10 Essential (primary) hypertension; Z59.00 Homelessness unspecified; Z86.69 Personal history of other diseases of the nervous system and sense organs; Z86.79 Personal history of other diseases of the circulatory system